=== PATIENT | male | born 1985 | race African-American/Black ===

== ENCOUNTER 2016-07-25 19:28 | Emergency (ER) | payer OTHER ==
[2016-07-25 21:42] LABS: URINE SOURCE CLEAN CATCH
[2016-07-25 22:03] LABS: URINE APPEARANCE TURBID; URINE BILIRUBIN NEG (NEG); URINE BLOOD NEG (NEG); URINE COLOR DK YELLOW; URINE GLUCOSE NEG (NEG); URINE KETONE TRACE (NEG); URINE LEUKOCYTE ESTERASE NEG (NEG); URINE NITRATE NEG (NEG); URINE PROTEIN NEG (NEG); URINE SPECIFIC GRAVITY 1.025 (1.003-1.035)
[2016-07-25 22:11] LABS: CULTURE INDICATED? NO
== END 2016-07-25 22:57 | disposition home or self-care (01) ==
LOC: CFTX 19:28 → CED 19:28 → CFTX 21:38
PROVIDERS: Nurse Practitioner Family
DX: S46.911A Strain of unspecified muscle, fascia and tendon at shoulder and upper arm level, right arm, initial encounter (principal); S39.012A Strain of muscle, fascia and tendon of lower back, initial encounter; S80.11XA Contusion of right lower leg, initial encounter; F17.210 Nicotine dependence, cigarettes, uncomplicated; V49.60XA Unspecified car occupant injured in collision with unspecified motor vehicles in traffic accident, initial encounter; Y92.410 Unspecified street and highway as the place of occurrence of the external cause
CPT/HCPCS: 81003; 99283